=== PATIENT | male | born 1995 | race Caucasian/White ===

== ENCOUNTER 2024-05-23 10:55 | Emergency (ER) | payer SELFPAY ==
[~2024-05-23] VITALS: Ht 165.1 cm; Wt 77.1 kg
[2024-05-23 11:17] VITALS: BP 128/71; PULSE 68; RESP 22; TEMP 98.3; O2SAT 100
[2024-05-23] MEDS: ACETAMINOPHEN 325 MG TAB PO ONE (12:46)
[2024-05-23] MEDS: KETOROLAC 30 MG/ML VIAL IM ONE (12:46)
[2024-05-23] MEDS ORDERED: ACET500T99 PO (13:37)
[2024-05-23] MEDS ORDERED: IBUP-2213 PO (13:37)
== END 2024-05-23 13:43 | disposition home or self-care (01) ==
LOC: MED 10:55
DX: R51.9 Headache, unspecified (principal); R50.9 Fever, unspecified; Z79.899 Other long term (current) drug therapy
CPT/HCPCS: 96372; 99283; J1885